=== PATIENT | male | born 1995 | race Two or more races ===

== ENCOUNTER 2017-04-22 19:19 | Emergency (ER) | payer BC, OTHER ==
[~2017-04-22] VITALS: Ht 175.3 cm; Wt 109.0 kg
[2017-04-22 19:23] VITALS: BP 143/85
[2017-04-22] MEDS ORDERED: LIDOCAINE 1%, 20ML SQ ONE (19:30)
[2017-04-22] MEDS ORDERED: LIDOCAINE 1%, 20ML ONE (19:52)
[2017-04-22] MEDS ORDERED: BACITRACIN ZINC OINT 500U/GM, 0.9 GM ONE (20:43)
== END 2017-04-22 20:50 | disposition home or self-care (01) ==
LOC: ED 20:44
DX: S81.812A Laceration without foreign body, left lower leg, initial encounter (principal); W22.8XXA Striking against or struck by other objects, initial encounter; Y93.89 Activity, other specified; Y92.488 Other paved roadways as the place of occurrence of the external cause; Y99.8 Other external cause status
CPT/HCPCS: 12002